=== PATIENT | male | born 1960 | race Caucasian/White ===

== ENCOUNTER 2019-04-30 01:20 | Outpatient (CLI) | payer OTHER, SELFPAY ==
--- NOTE | 2019-04-30 08:40 | DI.NM_ITS ---
SYMPTOMS/DIAGNOSIS: LEFT UPPER QUADRANT ABDOMINAL PAIN X 4-6 MOS, EARLY SATIETY, ABNORMAL 15-POUND WEIGHT LOSS OVER 6 MOS, R10.12, R68.81, R63.4 RADIONUCLIDE GASTRIC EMPTYING STUDY: A meal containing 1 mCi of technetium 99 labelled sulfur colloid was ingested. Calculation of gastric emptying at one, two and four hours post ingestion shows 63% residual, 15% residual, and 8% residual, respectively. The findings are within the normal range. CONCLUSION: Negative gastric emptying study.
== END 2019-04-30 01:40 ==
PROVIDERS: PCP Family Medicine; Visit Provider Internal Medicine Gastroenterology
DX: R10.12 Left upper quadrant pain (principal); R68.81 Early satiety; R63.4 Abnormal weight loss
CPT/HCPCS: 78265

== ENCOUNTER 2019-05-17 08:34 | Outpatient (REF) | payer OTHER, SELFPAY ==
[2019-05-19 16:05] LABS: Total Fat/24 Hr 8 g/24 h (2 - 7)
[2019-05-22 15:27] LABS: Pancreatic Elastase, F >500 mcg/g
== END 2019-05-17 08:54 ==
LOC: LBN 08:34
PROVIDERS: PCP Family Medicine; Visit Provider Internal Medicine Gastroenterology
DX: R63.0 Anorexia (principal); R63.4 Abnormal weight loss; R10.12 Left upper quadrant pain; K62.89 Other specified diseases of anus and rectum; R68.81 Early satiety
CPT/HCPCS: 82656; 82710

== ENCOUNTER 2019-05-29 03:00 | Outpatient (CLI) | payer OTHER, SELFPAY ==
--- NOTE | 2019-05-29 08:02 | DI.CT_ITS ---
SYMPTOM/DIAGNOSIS: R68.21 EARLY SATIETY, ABNORMAL WT LOSS R63.4 R10.12 LUQ PAIN, K62.89 RECTAL PAIN, R63.0 ANOREXIA ABDOMINAL AND PELVIC CT 05/29 CT examination of the abdomen and pelvis was performed with a bolus infusion ;of 100 cc Omnipaque 350 and ingestion of dilute Barium. Images obtained through the lung bases are unremarkable. Incidental note is made of tiny low attenuation lesion of the left hepatic lobe consistent with cyst and a small presumed splenic cyst is also noted. Gallbladder and bile ducts are CT normal. Pancreas appears normal Abdominal aorta is of normal diameter and no major vascular abnormality seen. Small fat containing right inguinal hernia noted. There is a 2 cm in diameter low attenuation right adrenal mass. Left adrenal is unremarkable in appearance. Nonobstructing lower pole left renal calculus noted measuring roughly 8 mm in diameter. No right renal calculus. No ureteral calcification identified on either side. No hydronephrosis. Abdominal aorta is of normal diameter and no major vascular abnormality seen. No significant abdominal or pelvic adenopathy seen. Appendix is normal. There is colonic diverticulosis without evidence of diverticulitis. No bowel obstruction. There is wall thickening of the urinary bladder which is nonspecific and which could represent chronic bladder outlet obstruction vs cystitis. A TURP defect of the bladder is noted. CONCLUSION: 1. Nonobstructing left renal calculus 2. Bladder wall thickening, cystitis vs chronic bladder outlet obstruction. 3. Incidental 20 mm right adrenal nodule, follow up CT recommended in 12 months.
[2019-05-29] MEDS: Omnipaque 350 MG/ML 50 ML BTL IJ (08:09)
[2019-05-29] MEDS: Breeza Beverage 473 ML BTL PO ×2 (08:09→08:10)
[2019-05-29] MEDS: Omnipaque 350 MG/ML 100 ML BTL IJ (10:23)
== END 2019-05-29 03:20 ==
PROVIDERS: PCP Family Medicine; Visit Provider Internal Medicine Gastroenterology
DX: R63.4 Abnormal weight loss (principal); R10.12 Left upper quadrant pain; R63.0 Anorexia; K62.89 Other specified diseases of anus and rectum; R68.81 Early satiety; N20.0 Calculus of kidney; N32.89 Other specified disorders of bladder; E27.8 Other specified disorders of adrenal gland
CPT/HCPCS: 74177; J3490; Q9967

== ENCOUNTER 2019-08-31 22:54 | Emergency (ER) | payer OTHER, SELFPAY ==
--- NOTE | 2019-08-31 00:09 | DI.CT_ITS ---
EXAM: CT RENAL COLIC WO CLINICAL HISTORY: gross hematuria TECHNIQUE: Noncontrast COMPARISON: CT ABDOMEN PELVIS W from 05/29/2019 FINDINGS: The lung bases are clear. The heart size is normal. The liver, gallbladder, spleen, pancreas and le ft adrenal are unremarkable. There is a smoothly marginated low-density lesion of the right adrenal, consistent with an adenoma. It is unchanged from the previous exam. There is a 5 millimeter nonobst ructing stone again noted in the mid to lower pole of the left kidney. There is no evidence of hydro nephrosis, ureteral or bladder calculi. The prostate is slightly enlarged. There is a small fatty c ontaining left inguinal hernia. Diverticula are noted in the sigmoid colon. There is no evidence of diverticulitis. The appendix appears normal. There is a moderate to increased quantity of stool. T here is no abnormal bowel wall thickening or inflammatory change. No free air, free fluid or adenopa thy is seen. IMPRESSION: Stable 5 millimeter nonobstructing stone at the lower pole of the left kidney. Diverticulosis withou t evidence of diverticulitis. No acute abnormality is identified.
[2019-08-31 23:07] VITALS: BP 94/59; PULSE 70; RESP 16; TEMP 36.6; O2SAT 96
--- NOTE | 2019-08-31 23:14 | ED.GENADUL_ITS ---
Discharge Plan Disposition Patient Disposition: HOME Condition: Good Discharge Details Chief Complaint: Urinary Clinical Impression: Gross hematuria Primary Care Provider: Dom Contreras ED Provider: Tobin Hicks Home Meds and New Rx's Prescriptions: Continued gabapentin 600 MG tablet 1,200 mg PO DAILY RF: 0 clonazepam [Klonopin] 1 MG tablet 1 mg PO TID RF: 0 mitoxantrone 2 MG/ML concentrate IV DIRECTED RF: 0 zolpidem [Ambien] 5 MG tablet 5 mg PO HS RF: 0 dalfampridine [Ampyra] 10 MG tablet extended release 12 hr 10 mg PO BID RF: 0 tadalafil [Cialis] 5 MG tablet 5 mg PO DAILY RF: 0 tamsulosin 0.4 mg Capsule 0.4 mg PO DAILY RF: 0 cholecalciferol (vitamin D3) [Vitamin D3] 5,000 unit Tablet 10,000 unit PO RF: 0 modafinil 100 mg Tablet 100 mg PO RF: 0 Discharge Instructions Instructions: Hematuria (ED) Additional Instructions: Other than a mild anemia your work-up tonight was essentially negative. You should contact your urologist for follow-up and possible cystoscopy. Return to ED if you develop fever, back/abdominal pain, inability to urinate. Medical Decision Making Patient presenting with gross hematuria without pain. He is not on anticoagulants. He denies this being a problem in the past. He denies pain. Blood pressure is in the 90s but he reports that is normal for him. He is not febrile or tachycardic. Will get CBC, BMP, coags as well as urinalysis. Bl adder scan although his bladder on physical exam does not feel distended. CT stone study to evaluate anatomy of renal system. Patient's bladder scan showed around 300 cc. According to patient he has problems with retention and typically has 200 cc. He is followed by urology at [facility]. He was able to provide a urine sample with about 100 cc out. This is positive for blood. Dipstick otherwise negative. Culture being done. Patient white count is normal. He has a mild anemia. Kidney function normal. Noncontrast CT scan shows a kidney stone within the left kidney but otherwise no obvious urologic pathology. Patient will be discharged home. Referred out to his urologist, Dr. Contreras. May need cystoscopy to rule out bladder tumor. Return to ED if he develops fever, back or abdominal pain, inability to urinate. Lab Data Lab results reviewed: Yes I reviewed the patient's lab results. HPI General Mode of arrival: wheelchair . Date/Time Provider Initiated Documentation: 08/31/19 23:12 . Limitations to Documentation: no limitations . Information obtained by: patient, RN notes reviewed and old records reviewed . HPI Narrative: Patient presents to ED with complaint of hematuria. Patient reports that while urinating tonight before bed he noticed gross hematuria. He had some burning at the tip of his penis but otherwise has no pain. Denies back, flank, abdominal pain. He has no fever or chills. He has no nausea vomiting. He reports history of UTIs but has never had gross hematuria like this before. Presents to ED as it concerned him. He is not on anticoagulants. Related Data Home Medications Medication Instructions Recorded Confirmed clonazepam [Klonopin] 1 mg PO TID 09/22/14 08/31/19 dalfampridine [Ampyra] 10 mg PO BID 09/22/14 08/31/19 gabapentin 1,200 mg PO DAILY 09/22/14 08/31/19 mitoxantrone IV DIRECTED 09/22/14 09/22/14 tadalafil [Cialis] 5 mg PO DAILY 09/22/14 09/22/14 zolpidem [Ambien] 5 mg PO HS 09/22/14 08/31/19 cholecalciferol (vitamin D3) 10,000 unit PO 08/31/19 [Vitamin D3] modafinil 100 mg PO 08/31/19 tamsulosin 0.4 mg PO DAILY 08/31/19 08/31/19 Allergies Allergy/AdvReac Type Severity Reaction Status Date / Time No Known Allergies Allergy Unverified 08/31/19 23:12 General Stated Complaint: Urinary ROBERTH: 3 Review of Systems Narrative: As documented in HPI otherwise negative as below. Const: no fever, chills, weakness Resp: no cough, SOB, pleuritic pain CV: no CP, diaphoresis, edema, syncope GI: no abdominal pain, nausea, vomiting, diarrhea Neuro: no headache, focal weakness, confusion PFSH Medical History Multiple sclerosis (Chronic) Surgical History S/P arthroscopic knee surgery (Acute) Social History Smoking/Tobacco Use Status: Never Alcohol Intake: never Drug use: Daily Substance use type: marijuana Details: has medical maijuana Do you feel safe at home: Yes Do you feel safe in your relationship?: No Exam Narrative Exam Narrative: Vitals: Afebrile. Low blood pressure which is normal per patient. Normal heart rate and room air saturation. Const: WDWN male in NAD. HEENT: NC/AT. Normal facial exam. Eyes: Normal conjunctiva and sclera. Neck: Supple. Trachea midline. Lungs: Normal respiratory effort. Lungs are clear. Cor: RRR without murmur/gallop. Good radial pulses. GI: Soft. NT/ND. No guarding or rebound. Back: No CVAT. Neuro: A+O x 3. Normal speech and mentation. Some weakness in legs and sensory changes due to his chronic multiple sclerosis. Ext: No C/C/E. Skin: Warm and dry. Course Vital Signs Vital signs: Vital Signs Temperature 97.9 F 08/31/19 23:07 Pulse 70 08/31/19 23:07 Respiratory Rate 16 08/31/19 23:07 Blood Pressure 94/59 L 08/31/19 23:07 Pulse Oximetry 96 08/31/19 23:07 Temperature 97.9 F 08/31/19 23:07 Temperature Source Temporal Artery Scan 08/31/19 23:07 Pulse 70 08/31/19 23:07 Respiratory Rate 16 08/31/19 23:07 Respiratory Effort 08/31/19 23:10 Blood Pressure 94/59 L 08/31/19 23:07 Blood Pressure Position Supine 08/31/19 23:07 Pulse Oximetry 96 08/31/19 23:07 Oxygen Delivery Method Room Air 08/31/19 23:07 Oxygen Flow Rate 0 08/31/19 23:07 Pain Level 0 08/31/19 23:07
[2019-08-31 23:43] LABS: Abs Immature Grans 0.01 k/cumm (0.0-0.09); Absolute Basophil Count 0.01 k/cumm (0.0-0.2); Absolute Eosinophil Count 0.07 k/cumm (0.0-0.7); Absolute Lymphocyte Count 0.92 k/cumm (1.2-3.4); Absolute Monocyte Count 0.57 k/cumm (0.11-0.7); Absolute Neutrophil Count 3.09 k/cumm (1.2-6.7); Basophils % 0.2; Eosinophils % 1.5; HCT 38.6 % (40.0-50.0); HGB 13.1 g/dL (13.5-17.5); Immature Grans % 0.2; Lymphocytes % 19.7; Mean Corp. HGB Concentration 33.9 g/dL (32.0-36.0); Mean Corpuscular Hemoglobin 29.2 pg (27.0-33.0); Mean Platelet Volume 11.1 fL (8.0-11.0); Monocytes % 12.2; Neutrophils % 66.2; Platelet Count 163 x1000/uL (130-400); RBC 4.49 m/cumm (4.50-6.00); RBC Distribution Width 12.7 % (11.8-14.1); White Blood Cell Count 4.67 k/cumm (4.4-10.8)
[2019-08-31 23:55] LABS: Anion Gap 7.1 mmol/L (3-11); BUN 14 mg/dL (7-18); CO2 29.9 mmol/L (21.0-32.0); CREATININE 1.01 mg/dL (0.70-1.30); Calcium 8.3 mg/dL (8.5-10.1); Chloride 104 mmol/L (98-107); Glucose 156 mg/dL (74-106); PTT Activated 24.3 sec (21.0-31.4); Potassium 3.6 mmol/L (3.5-5.1); Prothrombin Time 10.5 sec (9.3-11.0); Sodium 141 mmol/L (136-145)
[2019-09-01 00:10] LABS: Bilirubin Negative (Negative); Blood Large (Negative); Clarity Sl Cloudy (Clear); Glucose Negative (Negative); Ketones Negative (Negative); Leukocyte Esterase Negative (Negative); Nitrite Negative (Negative); Specific Gravity 1.025 (1.005-1.025); Urobilinogen 0.2 EU/dL (Up TO 0.2)
[2019-09-01 00:11] LABS: C & S Indicated? Yes; RBC >50 HPF (0-2)
--- NOTE | 2019-09-01 00:44 | DI.VRAD_ITS ---
PROCEDURE INFORMATION: Exam: CT Abdomen And Pelvis Without Contrast Exam date and time: 08/31/2019 12:06 AM Age: 58 years old Clinical history: Patient HX: Gross hematuria, low back pain TECHNIQUE: Imaging protocol: Computed tomography of the abdomen and pelvis without contrast. Radiation optimization: All CT scans at this facility use at least one of these dose optimization techniques: automated exposure control; mA and/or kV adjustment per patient size (includes targeted exams where dose is matched to clinical indication); or iterative reconstruction. COMPARISON: CT ABDOMEN PELVIS W 05/29/2019 9:33 AM FINDINGS: Lungs: Visualized lung bases are unremarkable. Liver: The liver is normal. Gallbladder and bile ducts: The gallbladder is normal. Pancreas: Normal. No ductal dilation. Spleen: The spleen is normal. Adrenals: Right adrenal nodule with density characteristics consistent with benign adenoma. Kidneys and ureters: 5 mm non-obstructing renal stone in the left kidney.The kidneys are otherwise unremarkable. Stomach and bowel: Diverticulosis in the distal colon without diverticulitis.The pancreas is normal. Appendix: A normal appendix is identified. Intraperitoneal space: Unremarkable. No free air. No significant fluid collection. Vasculature: Unremarkable. No abdominal aortic aneurysm. Lymph nodes: Unremarkable. No enlarged lymph nodes. Bladder: Unremarkable as visualized. Reproductive: Nonspecific partially visualized penile calcification. Bones/joints: Unremarkable. No acute fracture. Soft tissues: Small fat containing left inguinal hernia. IMPRESSION: 1. 5 mm non-obstructing renal stone in the left kidney. 2. Diverticulosis without diverticulitis. Dictated and Authenticated by: Jesus Villalobos MD. Ordering:GREG Rudd MD
== END 2019-09-01 01:05 | disposition home or self-care (01) ==
PROVIDERS: Emergency Provider Emergency Medicine; PCP Urology
DX: R31.0 Gross hematuria (principal)
CPT/HCPCS: 36415; 80048; 99284; 74176; 81003; 81015; 85025; 85610; 85730; 87086

== ENCOUNTER 2020-04-29 20:47 | Outpatient (REF) | payer OTHER, SELFPAY ==
[2020-04-29 21:11] LABS: Abs Immature Grans 0.01 10^3/uL (0.0-0.06); Absolute Basophil Count 0.04 10^3/uL (0.0-0.2); Absolute Eosinophil Count 0.02 10^3/uL (0.0-0.7); Absolute Lymphocyte Count 0.66 10^3/uL (1.2-3.4); Absolute Monocyte Count 0.59 10^3/uL (0.1-0.8); Basophils % 0.7; Eosinophils % 0.4; HGB 14.7 g/dL (13.5-17.5); Immature Grans % 0.2; Lymphocytes % 12.2; MCH 28.7 pg (27.0-33.0); MCHC 33.4 % (32.0-36.0); MCV 85.8 fL (80-95); MPV 12.1 fL (8.0-11.0); Monocytes % 10.9; Neutrophils % 75.6; Nucleated RBC 0 %; Platelet Count 182 10^3/uL (130-400); RBC 5.13 10^6/uL (4.36-5.78); RDW 11.9 % (11.8-14.1); RDW-SD 37.8 fL; WBC 5.42 10^3/uL (4.4-10.8)
[2020-04-29 21:46] LABS: Hemoglobin A1C 5.6 % (3.8-5.6)
[2020-04-29 21:53] LABS: ALT 29 U/L (16-63); AST 16 U/L (15-37); Albumin 4.1 g/dL (3.4-5.0); Alkaline Phosphatase 74 U/L (46-116); Anion Gap 10.4 mmol/L (3-11); BUN 14 mg/dL (7-18); Bilirubin, Total 0.3 mg/dL (0.2-1.0); CO2 26.6 mmol/L (21.0-32.0); CREATININE 0.83 mg/dL (0.70-1.30); Calcium 9.1 mg/dL (8.5-10.1); Calculated LDL 138 mg/dL (<100); Chloride 104 mmol/L (98-107); Cholesterol 225 mg/dL (<200); Glucose 85 mg/dL (74-106); HDL Cholesterol 53 mg/dL (40-60); Potassium 4.4 mmol/L (3.5-5.1); Sodium 141 mmol/L (136-145); Triglyceride 170 mg/dL (<150)
== END 2020-04-29 21:07 ==
LOC: LBN 20:47
PROVIDERS: PCP Nurse Practitioner Family; Visit Provider Nurse Practitioner Family
DX: E78.5 Hyperlipidemia, unspecified (principal)
CPT/HCPCS: 80053; 80061; 83036; 85025

== ENCOUNTER 2020-07-11 01:18 | Outpatient (CLI) | payer OTHER, SELFPAY ==
--- NOTE | 2020-07-11 | DI.CT_ITS ---
EXAM: CT ABDOMEN PELVIS W CLINICAL HISTORY: COMPARE TO 05/29/19,R93.5,F/U ABNL CT. TECHNIQUE: Imaging Protocol: Axial computed tomography images with coronal and sagittal reformatted images were created and reviewed CONTRAST MATERIAL: Intravenous: Omnipaque 350 Contrast volume:100 ml Oral: yes / COMPARISON: CT CT RENAL COLIC WO from 09/01/2019 FINDINGS: ABDOMEN: Lung Bases: Normal where visualized. Liver: Normal density. Stable tiny hypodensity anteriorly. Gallbladder and biliary tract: No radiodense calculus or dilation. Pancreas: Normal density, no abnormal calcifications or inflammatory process. Spleen: Normal. Kidneys: Normal size, contour and axis. Nonobstructing stone lower pole left kidney. No obstructive uropathy. No masses seen. Adrenal glands: Stable small right adrenal adenoma. No suspicious features. Abdominal Aorta: Abdominal portion non-dilated. PELVIS: Bladder: Symmetric distention, no gross wall thickening. Bowel: No obstruction or bowel wall thickening. Normal appendix. Diverticulosis. No evidence of div erticulitis. Peritoneal cavity: No ascites, collection or mesenteric inflammatory response. Bones: Within normal limits. Reproductive organs: Within normal limits. Lymph nodes: Unremarkable. Small fatty containing left inguinal hernia. Impression: Stable small right adrenal adenoma. Nonobstructing stone lower pole left kidney. Diverticulosis wit hout evidence of diverticulitis. RADIATION DOSE DELIVERED: 896.56mGy.cm Total DLP DATA REPOSITORY: All CT scans at this facility are submitted to the National Radiology Data Registry (NRDR) Dose Index Registry (DIR) with the [employer] (ACR). RADIATION OPTIMIZATION: All CT scans at this facility use at least one of these dose optimization te chniques: automated exposure control; mA and/or kV adjustment per patient size (includes targeted exa ms where dose is matched to clinical indication); or iterative reconstruction.
[2020-07-11] MEDS: Omnipaque 350 MG/ML 50 ML BTL IJ (08:26)
[2020-07-11] MEDS: Breeza Beverage 473 ML BTL PO ×2 (08:26→08:27)
[2020-07-11] MEDS: Omnipaque 350 MG/ML 100 ML BTL IJ (09:11)
[2020-07-11] MEDS: Normal Saline - Diluent 50 ML VIAL IV (09:12)
[2020-07-11 09:43] LABS: Abs Immature Grans 0.02 10^3/uL (0.0-0.06); Absolute Basophil Count 0.02 10^3/uL (0.0-0.2); Absolute Eosinophil Count 0.05 10^3/uL (0.0-0.7); Absolute Lymphocyte Count 0.63 10^3/uL (1.2-3.4); Absolute Monocyte Count 0.57 10^3/uL (0.1-0.8); Absolute Neutrophil Count 4.93 10^3/uL (1.2-6.7); Basophils % 0.3; Eosinophils % 0.8; HCT 41.4 % (40.0-50.0); HGB 13.8 g/dL (13.5-17.5); Immature Grans % 0.3; Lymphocytes % 10.1; MCH 29.2 pg (27.0-33.0); MCHC 33.3 % (32.0-36.0); MCV 87.7 fL (80-95); Monocytes % 9.2; Neutrophils % 79.3; Nucleated RBC 0 %; Platelet Count 154 10^3/uL (130-400); RBC 4.72 10^6/uL (4.36-5.78); RDW 11.9 % (11.8-14.1); RDW-SD 38.5 fL; WBC 6.22 10^3/uL (4.4-10.8)
[2020-07-11 10:06] LABS: Bilirubin Negative (Negative); Blood Negative (Negative); Clarity Clear (Clear); Glucose Negative (Negative); Ketones Negative (Negative); Leukocyte Esterase Negative (Negative); Nitrite Negative (Negative); Specific Gravity 1.015 (1.005-1.025); Urobilinogen 0.2 EU/dL (Up TO 0.2)
[2020-07-11 10:08] LABS: CREATININE 1.09 mg/dL (0.70-1.30)
== END 2020-07-11 01:38 ==
PROVIDERS: PCP Nurse Practitioner Family; Visit Provider Internal Medicine Gastroenterology
DX: N20.0 Calculus of kidney (principal); D35.01 Benign neoplasm of right adrenal gland; K57.30 Diverticulosis of large intestine without perforation or abscess without bleeding; G35 Multiple sclerosis; Z51.81 Encounter for therapeutic drug level monitoring
CPT/HCPCS: 74177; 81003; 82565; 84443; 85025; J3490; Q9967

== ENCOUNTER 2021-02-20 12:51 | Outpatient (REF) | payer OTHER, SELFPAY | END 2021-02-20 12:52 | disposition home or self-care (01) | LOC: NCHCN 12:51 | PROVIDERS: PCP Nurse Practitioner Family; Visit Provider Nurse Practitioner Family | DX: R30.0 Dysuria (principal) | CPT/HCPCS: 87077; 87086; 87186 ==

== ENCOUNTER 2021-05-31 18:21 | Outpatient (REF) | payer OTHER, SELFPAY ==
[2021-05-31 19:52] LABS: Bilirubin Negative (Negative); Blood Trace-intact (Negative); Clarity Clear (Clear); Glucose Negative (Negative); Ketones Negative (Negative); Leukocyte Esterase Trace (Negative); Nitrite Negative (Negative); Specific Gravity 1.015 (1.005-1.025); Urobilinogen 0.2 EU/dL (Up TO 0.2)
[2021-05-31 20:22] LABS: Bacteria Negative HPF (Negative); C & S Indicated? Yes; Casts Negative LPF (Negative); Crystals Negative HPF (Negative); Epithelial Cells Negative HPF (Negative); Mucus Negative (Negative); Other Cells Negative (Negative); RBC Negative HPF (0-2)
== END 2021-05-31 18:22 | disposition home or self-care (01) ==
LOC: LBN 18:21
PROVIDERS: PCP Nurse Practitioner Family; Visit Provider Nurse Practitioner Family
DX: N39.0 Urinary tract infection, site not specified (principal)
CPT/HCPCS: 81003; 81015; 87086

== ENCOUNTER 2021-08-16 19:07 | Outpatient (REF) | payer OTHER, SELFPAY ==
[2021-08-16 18:36] LABS: Bilirubin Negative (Negative); Blood Negative (Negative); Clarity Clear (Clear); Glucose Negative (Negative); Ketones Negative (Negative); Leukocyte Esterase Negative (Negative); Nitrite Negative (Negative); Specific Gravity >= 1.030 (1.005-1.025); Urobilinogen 0.2 EU/dL (Up TO 0.2); pH 6.5 (5-8)
== END 2021-08-16 19:08 | disposition home or self-care (01) ==
LOC: LBN 19:07
PROVIDERS: PCP Nurse Practitioner Family; Visit Provider Nurse Practitioner Family
DX: R82.90 Unspecified abnormal findings in urine (principal)
CPT/HCPCS: 81003

== ENCOUNTER 2021-10-29 12:05 | Outpatient (REF) | payer OTHER, SELFPAY ==
[2021-10-29 13:04] LABS: Bilirubin Negative (Negative); Blood Negative (Negative); Clarity Clear (Clear); Glucose Negative (Negative); Ketones Negative (Negative); Leukocyte Esterase Negative (Negative); Nitrite Negative (Negative); Urobilinogen 0.2 EU/dL (Up TO 0.2)
== END 2021-10-29 12:06 | disposition home or self-care (01) ==
LOC: LBN 12:05
PROVIDERS: PCP Nurse Practitioner Family; Visit Provider Family Medicine
DX: R30.0 Dysuria (principal)
CPT/HCPCS: 81003

== ENCOUNTER 2022-09-13 02:14 | Outpatient (CLI) | payer OTHER, SELFPAY ==
[2022-09-13 08:27] LABS: Anion Gap 7.9 mmol/L (3-11); BUN 15 mg/dL (7-18); CO2 29.1 mmol/L (21.0-32.0); CREATININE 1.2 mg/dL (0.70-1.30); Calcium 8.7 mg/dL (8.5-10.1); Calculated LDL 129 mg/dL (<100); Chloride 105 mmol/L (98-107); Cholesterol 222 mg/dL (<200); Estimated GFR 69.23 (mL/min/1.73m2); Glucose 112 mg/dL (74-106); HDL Cholesterol 50 mg/dL (40-60); Sodium 142 mmol/L (136-145); Triglyceride 216 mg/dL (<150)
== END 2022-09-13 02:15 | disposition home or self-care (01) ==
LOC: LBO 02:14
PROVIDERS: PCP Nurse Practitioner Family; Visit Provider Nurse Practitioner Family
DX: E78.5 Hyperlipidemia, unspecified (principal)
CPT/HCPCS: 36415; 80048; 80061

== ENCOUNTER 2023-06-03 14:04 | Outpatient (REF) | payer OTHER, SELFPAY ==
[2023-06-03 13:36] LABS: Bilirubin Negative (Negative); Blood Negative (Negative); Clarity Sl Cloudy (Clear); Glucose Negative (Negative); Ketones Negative (Negative); Leukocyte Esterase Negative (Negative); Nitrite Positive (Negative); Urobilinogen 0.2 mg/dL (Up to 0.2)
[2023-06-03 13:48] LABS: Bacteria Many HPF (Negative); C & S Indicated? Yes; Casts Negative LPF (Negative); Crystals Negative HPF (Negative); Epithelial Cells Rare HPF (Negative); Mucus Negative (Negative); RBC 0-2 HPF (0-2); WBC 0-2 HPF (0-5)
== END 2023-06-03 14:05 | disposition home or self-care (01) ==
LOC: LBN 14:04
PROVIDERS: PCP Nurse Practitioner Family; Visit Provider Nurse Practitioner Family
DX: R35.0 Frequency of micturition (principal); R82.79 Other abnormal findings on microbiological examination of urine
CPT/HCPCS: 87077; 81003; 81015; 87086; 87186

== ENCOUNTER 2023-09-26 09:59 | Outpatient (REF) | payer OTHER, SELFPAY ==
[2023-09-26 11:57] LABS: Bilirubin Negative (Negative); Blood Negative (Negative); Clarity Clear (Clear); Glucose Negative (Negative); Ketones Negative (Negative); Leukocyte Esterase Negative (Negative); Nitrite Negative (Negative); Specific Gravity 1.025 (1.005-1.025); Urobilinogen 0.2 mg/dL (Up to 0.2)
== END 2023-09-26 10:00 | disposition home or self-care (01) ==
LOC: LBN 09:59
PROVIDERS: PCP Nurse Practitioner Family; Visit Provider Nurse Practitioner Family
DX: R30.0 Dysuria (principal)
CPT/HCPCS: 81003

== ENCOUNTER 2023-09-27 02:38 | Outpatient (CLI) | payer OTHER, SELFPAY ==
[2023-09-27 13:30] LABS: Abs Immature Grans 0.02 10^3/uL (0.0-0.06); Absolute Basophil Count 0.03 10^3/uL (0.0-0.2); Absolute Eosinophil Count 0.05 10^3/uL (0.0-0.7); Absolute Monocyte Count 0.69 10^3/uL (0.1-0.8); Absolute Neutrophil Count 4.55 10^3/uL (1.2-6.7); Basophils % 0.5; Eosinophils % 0.8; HCT 43.7 % (40.0-50.0); HGB 14.5 g/dL (13.5-17.5); Immature Grans % 0.3; Lymphocytes % 18.3; MCH 28.4 pg (27.0-33.0); MCHC 33.2 % (32.0-36.0); MCV 86 fL (80-95); MPV 11.7 fL (8.0-11.0); Monocytes % 10.6; Neutrophils % 69.5; Platelet Count 209 10^3/uL (130-400); RDW 13.1 % (11.8-14.1); RDW-SD 40.7 fL; WBC 6.54 10^3/uL (4.4-10.8)
[2023-09-27 13:43] LABS: Anion Gap 3.5 mmol/L (3-11); BUN 18 mg/dL (7-18); CO2 31.5 mmol/L (21.0-32.0); Calcium 8.9 mg/dL (8.5-10.1); Chloride 103 mmol/L (98-107); Estimated GFR 85.63 (mL/min/1.73m2); Glucose 120 mg/dL (74-106); Potassium 4.4 mmol/L (3.5-5.1); Sodium 138 mmol/L (136-145)
[2023-09-30 08:50] LABS: PSA, Screening 0.4 ng/mL (<=4.5)
== END 2023-09-27 02:39 | disposition home or self-care (01) ==
PROVIDERS: PCP Nurse Practitioner Family; Visit Provider Nurse Practitioner Family
DX: Z00.00 Encounter for general adult medical examination without abnormal findings (principal); Z12.5 Encounter for screening for malignant neoplasm of prostate
CPT/HCPCS: 36415; 80048; 84153; 85025

== ENCOUNTER 2023-10-28 16:07 | Outpatient (REF) | payer OTHER, SELFPAY ==
[2023-10-28 13:39] LABS: Bilirubin Negative (Negative); Blood Trace-intact (Negative); Clarity Clear (Clear); Glucose Negative (Negative); Ketones Negative (Negative); Leukocyte Esterase Trace (Negative); Nitrite Negative (Negative); Specific Gravity 1.015 (1.005-1.025); Urobilinogen 0.2 mg/dL (Up to 0.2); pH 6.5 (5-8)
[2023-10-28 13:47] LABS: Bacteria Rare HPF (Negative); C & S Indicated? Yes; Casts Negative LPF (Negative); Crystals Negative HPF (Negative); Epithelial Cells Rare HPF (Negative); Mucus Negative (Negative); RBC 0-2 HPF (0-2)
== END 2023-10-28 16:08 | disposition home or self-care (01) ==
LOC: LBN 16:07
PROVIDERS: PCP Nurse Practitioner Family; Visit Provider Nurse Practitioner Family
DX: R35.0 Frequency of micturition (principal)
CPT/HCPCS: 87077; 81003; 81015; 87086; 87186

== ENCOUNTER 2023-12-05 09:25 | Emergency (ER) | payer OTHER, SELFPAY ==
[2023-12-05 09:37] VITALS: BP 134/68; PULSE 102; RESP 16; TEMP 36.4; O2SAT 97
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
== END 2023-12-05 11:04 | disposition home or self-care (01) ==
PROVIDERS: Emergency Provider Nurse Practitioner Family; PCP Nurse Practitioner Family
DX: S01.112A Laceration without foreign body of left eyelid and periocular area, initial encounter (principal); G35 Multiple sclerosis; Z87.891 Personal history of nicotine dependence; W18.12XA Fall from or off toilet with subsequent striking against object, initial encounter; Y93.E8 Activity, other personal hygiene; Y92.012 Bathroom of single-family (private) house as the place of occurrence of the external cause
CPT/HCPCS: 12013; 99283

== ENCOUNTER 2024-02-25 12:24 | Emergency (ER) | payer OTHER, SELFPAY ==
[2024-02-25 12:30] VITALS: BP 120/71; PULSE 102; RESP 18; TEMP 36.6; O2SAT 97
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
== END 2024-02-25 13:10 | disposition home or self-care (01) ==
PROVIDERS: Emergency Provider Student in an Organized Health Care Education/Training Program; PCP Nurse Practitioner Family
DX: S51.812A Laceration without foreign body of left forearm, initial encounter (principal); W26.0XXA Contact with knife, initial encounter
CPT/HCPCS: 12001

== ENCOUNTER 2024-02-27 21:43 | Emergency (ER) | payer OTHER, SELFPAY ==
[2024-02-27 21:46] VITALS: BP 103/75; PULSE 98; RESP 20; TEMP 36.7; O2SAT 95
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
== END 2024-02-27 22:14 | disposition home or self-care (01) ==
PROVIDERS: Emergency Provider Emergency Medicine; PCP Nurse Practitioner Family
DX: L76.22 Postprocedural hemorrhage of skin and subcutaneous tissue following other procedure
CPT/HCPCS: 99281; 99282

== ENCOUNTER 2024-04-08 09:00 | Outpatient (REF) | payer OTHER, SELFPAY ==
[2024-04-09 15:02] LABS: Bilirubin Negative (Negative); Blood Negative (Negative); Clarity Clear (Clear); Glucose Negative (Negative); Ketones Negative (Negative); Leukocyte Esterase Negative (Negative); Nitrite Negative (Negative); Urobilinogen 0.2 mg/dL (Up to 0.2)
== END 2024-04-08 09:01 | disposition home or self-care (01) ==
LOC: LBN 09:00
PROVIDERS: PCP Nurse Practitioner Family; Visit Provider Nurse Practitioner Family
DX: R30.0 Dysuria (principal)
CPT/HCPCS: 81003

== ENCOUNTER 2024-05-14 09:54 | Outpatient (REF) | payer OTHER, SELFPAY ==
[2024-05-14 10:53] LABS: Bilirubin Negative (Negative); Blood Negative (Negative); Clarity Sl Cloudy (Clear); Glucose Negative (Negative); Ketones Negative (Negative); Leukocyte Esterase Trace (Negative); Nitrite Positive (Negative); Specific Gravity 1.015 (1.005-1.025); Urobilinogen 0.2 mg/dL (Up to 0.2)
[2024-05-14 11:20] LABS: Bacteria Moderate HPF (Negative); C & S Indicated? No; Casts Negative LPF (Negative); Crystals Negative HPF (Negative); Epithelial Cells Rare HPF (Negative); Mucus Trace (Negative); RBC 0-2 HPF (0-2)
[2024-05-14 18:26] LABS: Lab Add On Test DONE
== END 2024-05-14 09:55 | disposition home or self-care (01) ==
LOC: LBN 09:54
PROVIDERS: PCP Nurse Practitioner Family; Visit Provider Nurse Practitioner Family
DX: R35.0 Frequency of micturition (principal); Z78.9 Other specified health status; R30.0 Dysuria
CPT/HCPCS: 87077; 81003; 81015; 87086; 87186

== ENCOUNTER 2024-06-16 20:37 | Outpatient (REF) | payer OTHER, SELFPAY ==
[2024-06-16 18:39] LABS: Bilirubin Negative (Negative); Blood Trace-intact (Negative); Clarity Clear (Clear); Glucose Negative (Negative); Ketones Negative (Negative); Leukocyte Esterase Trace (Negative); Nitrite Positive (Negative); Urobilinogen 0.2 mg/dL (Up to 0.2); pH 7.5 (5-8)
[2024-06-16 18:44] LABS: Bacteria Many HPF (Negative); C & S Indicated? No; Casts Negative LPF (Negative); Crystals Negative HPF (Negative); Epithelial Cells Few HPF (Negative); Mucus Trace (Negative)
== END 2024-06-16 20:38 | disposition home or self-care (01) ==
LOC: LBN 20:37
PROVIDERS: PCP Nurse Practitioner Family; Visit Provider Urology
DX: R39.15 Urgency of urination (principal); R35.0 Frequency of micturition
CPT/HCPCS: 81003; 81015

== ENCOUNTER 2025-06-07 09:26 | Emergency (ER) | payer OTHER, SELFPAY ==
[2025-06-07 09:42] VITALS: BP 118/74; PULSE 88; RESP 20; TEMP 36.8; O2SAT 94
[2025-06-07] MEDS: Cephalexin 500 MG CAP, 4 CAPS/BTL PO (10:27)
[2025-06-07 10:39] VITALS: BP 115/78; PULSE 77; RESP 16; O2SAT 98
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
--- NOTE | 2025-06-07 11:10 | DI.RAD_ITS ---
Exam(s) XR KNEE RT 3V AP,LAT,YUKO EXAM: XR KNEE RT 3V AP,LAT,YUKO CLINICAL HISTORY: right knee swelling. TECHNIQUE: 2D digital imaging was performed of the right knee. Three views obtained. AP, lateral and PA tunnel views were obtained. COMPARISON: No exams were available for comparison FINDINGS: BONES: No acute fracture is present. No bony destructive lesion is seen. JOINTS: The knee is normally aligned. No joint effusion is seen. There are mild degenerative changes seen in the knee. SOFT TISSUE: There is marked soft tissue swelling anterior to the patella. No soft tissue gas is seen. No soft tissue calcifications are present. IMPRESSION: Marked soft tissue swelling anterior to the patella. No acute fracture or dislocation is present. DATA REPOSITORY: RADIATION DOSE DELIVERED:
[2025-06-07] MEDS: Diclofenac 1% Gel 100 GM TUBE TP (12:02)
[2025-06-07 12:27] VITALS: BP 113/75; PULSE 74; RESP 16; O2SAT 98
== END 2025-06-07 12:27 | disposition home or self-care (01) ==
PROVIDERS: Emergency Provider Student in an Organized Health Care Education/Training Program; PCP Nurse Practitioner Family
DX: S31.31XA Laceration without foreign body of scrotum and testes, initial encounter (principal); M70.41 Prepatellar bursitis, right knee; Z87.891 Personal history of nicotine dependence; W26.8XXA Contact with other sharp object(s), not elsewhere classified, initial encounter; Y93.E8 Activity, other personal hygiene; Y92.012 Bathroom of single-family (private) house as the place of occurrence of the external cause
CPT/HCPCS: 12002; 73562; 99283

== ENCOUNTER 2025-06-17 09:51 | Emergency (ER) | payer OTHER, SELFPAY ==
[2025-06-17 10:04] VITALS: BP 109/70; PULSE 98; RESP 12; TEMP 36.8; O2SAT 96
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
[2025-06-17] MEDS: Cephalexin 500 MG CAP, 4 CAPS/BTL PO (10:42)
== END 2025-06-17 10:47 | disposition home or self-care (01) ==
PROVIDERS: Emergency Provider Student in an Organized Health Care Education/Training Program; PCP Nurse Practitioner Family
DX: R22.43 Localized swelling, mass and lump, lower limb, bilateral; T81.31XA Disruption of external operation (surgical) wound, not elsewhere classified, initial encounter; Z59.811 Housing instability, housed, with risk of homelessness
CPT/HCPCS: 99284; 99283

== ENCOUNTER → 2025-09-20 14:48 | Outpatient (CLI) | payer OTHER, SELFPAY ==
--- NOTE | 2025-09-20 | DI.RAD_ITS ---
Exam(s) XR ABDOMEN FLAT PLATE EXAM: 2D digital imaging was performed. CLINICAL HISTORY: COCCYX PAIN M53.3 CONSTIPATION K59.09. COMPARISON: CT CT PELVIC W from 10/11/2023 TECHNIQUE: Supine views of the abdomen performed. FINDINGS: BOWEL GAS PATTERN: Nondistended. Moderate quantity of stool. CALCIFICATIONS: 6 millimeter stone noted at the lower pole of the left kidney. OSSEOUS STRUCTURES: Unremarkable for age. VISUALIZED LUNG BASES: Clear. SOFT TISSUES: Unremarkable. IMPRESSION: 1. Nonobstructive bowel gas pattern. Moderate quantity of stool. 2. 6 millimeter stone the lower pole of the left kidney, unchanged compared with prior CT. DATA REPOSITORY: RADIATION DOSE DELIVERED:
--- NOTE | 2025-09-20 | DI.RAD_ITS ---
Exam(s) XR SACRUM COCCYX EXAM: XR SACRUM COCCYX CLINICAL HISTORY: COCCYX PAIN M53.3 CONSTIPATION K59.09. TECHNIQUE: 2D digital imaging was performed. COMPARISON: CT CT PELVIC W from 10/11/2023 FINDINGS: BONES: No acute fracture is present. No bony destructive lesion is seen. JOINTS: No dislocation present. The hip joint spaces are maintained. There is mild bilateral acetabular spurring. The SI joints and pubic symphysis appear normal. Mild degenerative disc changes and facet degenerative changes are present at L5-S1. SOFT TISSUE: Normal. IMPRESSION: Degenerative changes of the hips and L5-S1 disc. No abnormality is identified involving the sacrum or coccyx. DATA REPOSITORY: RADIATION DOSE DELIVERED:
== END ==
LOC: DI 14:48
PROVIDERS: PCP Nurse Practitioner Family; Visit Provider Nurse Practitioner Family
DX: M53.3 Sacrococcygeal disorders, not elsewhere classified (principal); K59.09 Other constipation; M16.0 Bilateral primary osteoarthritis of hip; M51.372 Other intervertebral disc degeneration, lumbosacral region with discogenic back pain and lower extremity pain
CPT/HCPCS: 72220; 74018